=== PATIENT | male | born 1970 | race African-American/Black ===

== ENCOUNTER → 2018-10-02 13:23 | Outpatient (CLI) | payer BC ==
--- NOTE | 2018-10-20 12:54 | ST ---
PATIENT:ESPINOZA TORRES MEDICAL RECORD: [id number] SEX: M LOCATION:[facility] ORDER #: ADMISSION DATE: 10/02/18 AGE OF PATIENT: 47 REFERRING PHYSICIAN: INTERPRETING PHYSICIAN: KERRY CARO MD DATE OF SERVICE: 10/02/2018 Treadmill Stress Test Baseline ECG is normal. He exercised for 10 minutes under Luis A protocol, maximum heart rate at 129 beats per minute, greater than 85% max predicted, no ECG change for ischemia. No symptoms of ischemia. Normal blood pressure response to exercise. No arrhythmias noted. Good exercise tolerance for age. TRANSINT:[id number] Voice Confirmation ID: [id number] DOCUMENT ID: [id number] 10/18/18 Edited to correct date of service, dmm. KERRY CARO MD at 1254 CC: [id number] DICTATION DATE: 10/04/18 1528 COLD PRESS LOADER: 10/04/18 2357 DEP CLI 10/02/18 [id number] [place] [address]
== END | disposition home or self-care (01) ==
LOC: D.HCCARDIO 13:23
DX: R06.09 Other forms of dyspnea (principal)